=== PATIENT | female | born 1930 | race African-American/Black ===

== ENCOUNTER 2017-04-24 10:40 | Emergency (ER) | payer OTHER ==
[~2017-04-24] VITALS: Ht 154.9 cm; Wt 59.9 kg
[~2017-04-24 10:40] MED LIST: ADULT LOW DOSE81 MG PO; APAP500 PO; ARICEPT 5 MG TAB5 MG PO; ATIVAN0.5 MG PO; CALCIUM ASCORB500 MG PO; CELEXA 10 MG TA10 M1 PO; CLARITIN10 MG PO; DUONEB 2.5-0.5 M3 ML INH; EXELON 9.5 MG9.5 MG; FEROSUL220 MG/51 PO; IMODIUM MULTI-1 EACH PO; IRON325 PO; LAMICTAL100 MG PO; LISINOPRIL20 MG PO; MIRALAX17 GM PO; MYLANTA TABLET1 TA1 PO; NAMENDA 5 MG TAB5 M1 PO; NEXIUM40 MG PO; NIFEDIPINE ER30 M1 PO; NIFEDIPINE20 MG PO; ONDANSETRON HCL4 M2 PO; REMERON15 MG PO; SEROQUEL 12.512.5 MG PO; SEROQUEL 50 MG50 M1 PO; SIMETHICON CHEW80 MG PO; SYNTHROID75 MCG PO; TOPROL XL50 MG PO; TUMS PO; VANCOMYCIN100 MG/M1 PO
== END 2017-04-24 12:45 ==
LOC: ER 10:40
DX: S00.03XA Contusion of scalp, initial encounter (principal); I10 Essential (primary) hypertension; K21.9 Gastro-esophageal reflux disease without esophagitis; F03.90 Unspecified dementia, unspecified severity, without behavioral disturbance, psychotic disturbance, mood disturbance, and anxiety; F32.9 Major depressive disorder, single episode, unspecified; F41.9 Anxiety disorder, unspecified; E03.9 Hypothyroidism, unspecified; I73.9 Peripheral vascular disease, unspecified; Z90.49 Acquired absence of other specified parts of digestive tract; Z86.2 Personal history of diseases of the blood and blood-forming organs and certain disorders involving the immune mechanism; W05.0XXA Fall from non-moving wheelchair, initial encounter; Y93.89 Activity, other specified; Y92.89 Other specified places as the place of occurrence of the external cause; Y99.8 Other external cause status